=== PATIENT | male | born 1950 | race Caucasian/White ===

== ENCOUNTER 2023-06-28 13:44 | Inpatient (IN) | payer OTHER, SELFPAY ==
[2023-06-27 13:01] VITALS: BP 170/98
[2023-06-27 13:25] LABS: % Basophils 0.5 % (0-2); % Eosinophils 1.9 % (0-6); % Immature Granulocytes 0.7 % (0-0.5); % Lymphocytes 22.6 % (20.5-51.1); % Monocytes 5.1 % (1.7-9.3); % Neutrophils 69.2 % (42.2-75.2); Absolute Eosinophils 0.2 10^3/uL (0-0.7); Absolute Immature Granulocytes 0.1 10^3/uL (0-0.05); Absolute Monocytes 0.5 10^3/uL (0.1-0.6); Absolute Neutrophils 6.1 10^3/uL (1.4-6.5); Hematocrit 40.8 % (39.0-52.0); Hemoglobin 13.6 g/dL (13.0-18.0); Mean Corp Hgb Conc. 33.3 g/dL (33.0-37.0); Mean Corpuscular Hgb 30.4 pg (27.0-31.0); Mean Corpuscular Volume 91.1 fL (80.0-94.0); Nucleated Red Blood Cells % 0 % (-); Platelet Count 336 10^3/uL (130-400); Red Blood Cell Count 4.48 10^6/uL (4.70-6.10); Red Cell Dist. Width 14.6 % (11.5-14.5); White Blood Cell Count 8.8 10^3/uL (4.8-10.8)
[2023-06-27 14:00] LABS: ALT (SGPT) 35 U/L (0-50); AST (SGOT) 31 U/L (17-59); Alkaline Phosphatase 137 U/L (38-126); Blood Urea Nitrogen 17 mg/dl (9-20); Calcium 9.1 mg/dl (8.4-10.2); Carbon Dioxide 22 mmol/L (22-30); Chloride 104 mmol/L (98-107); Glucose 127 mg/dl (70-99); Potassium 4.6 mmol/L (3.5-5.1); Sodium 135 mmol/L (135-145); Total Bilirubin 0.7 mg/dl (0.2-1.3); eGFR > 60.00
--- NOTE | 2023-06-27 15:49 | ED.SKININJ ---
HPI-Injury
General
Chief Complaint: Skin Problem
Source: patient and family
Exam Limitations: none
Time Seen by Provider: 06/27/23 15:34
Nursing documentation reviewed up to this point in time: agreed with
Travel History
Have you had any contact with someone who has COVID-19?: No
Do you have any symptoms of coronavirus? Fever > 100 degrees, chills, cough, shortness of breath, sore throat, loss of taste or smell, muscle aches, or headache?: No
History of Present Illness-Injury
Is this injury a work related problem?: Yes
Is pt an associate of [facility]?: No
Initial Injury comments:
72-year-old male referred to the ER for admission for IV antibiotics
Injured his right lower extremity blowing snow about a week ago puncture wound, went to work of his health and PCP started on Bactrim increased redness and pain with warmth no fever went to [facility] today referred here after he had an x-ray for IV
antibiotics and admission has peripheral vascular disease he is on Plavix and Eliquis and aspirin not known to be diabetic no chest pain or shortness of breath
Past History
Past History
ED Past Medical History: Other (Peripheral vascular disease)
Social History
Tobacco: Non-smoker
Alcohol: None
Drug: None
Personal:
Living: with family
Employment: Employed
Review of Systems
Review of Systems
All Other Systems: Not applicable
Constitutional: Reports fatigue; Denies fever
EENT: Reports no symptoms
Respiratory: Reports no symptoms
Cardiac: Reports no symptoms
ABD/GI: Reports no symptoms
: Reports no symptoms
Musculoskeletal: Reports muscle stiffness and edema
Skin: Reports rash
Neurological: Reports no symptoms
Endocrine: Reports no symptoms
Phy Exam
Physical Exam
Physical Exam:
Physical Exam
General: no apparent distress, not acutely ill
Neck: No jaundice
Heart: s1/s2 regular rate and rhythm, no murmur. equal radial pulses.
Lungs: no acute respiratory distress. clear bilaterally
Abdomen: Nontender
Neuro: alert and oriented. no focal neurological deficits
Skin: no rash
Psychiatric: well kept. interactive and cooperative
Extremities: Right lower extremity edema warmth puncture wound on the right lateral leg
Course
Orders/Labs/Results
Orders:
Orders
06/27/23 13:18
Complete Blood Count/With Diff Urgent
Comprehensive Metabolic Panel Urgent
Blood Culture Urgent
TUNG Source: Blood/Venous
Specimen Description:
06/27/23 15:56
Electrocardiogram (*1) Urgent
Reason for Study: Fatigue / Weakness
EKG- Treatment ONCE
06/27/23 15:57
CeFAZolin 2 GRAM [Ancef] 2 grams in 10 ml IV NOW
06/27/23 16:04
Blood Culture Urgent
TUNG Source: Blood/Venous
Specimen Description:
06/27/23 16:38
Tetanus Immune Globulin [Hyper-TET S/D] 250 units IM ONCE ONE
Tetanus/Diphth/Acelpertussis [Adacel] 0.5 ml IM .ONCE ONE
06/27/23 16:44
Admit/Transfer Patient As Directed
Co-Sign Provider:
Level of Care: Observation services
Assign to:: Medical/Surgical
Physician / Group: Ren
Diagnosis: RLE Cellulitis
06/27/23 16:46
Code Status As Directed
Resuscitation Status: Full Code
Abnormal Lab Results
06/27/23
13:18
RBC 4.48 L 10^6/uL
(4.70-6.10)
RDW 14.6 H %
(11.5-14.5)
Abs Immat Gran (auto) 0.1 H 10^3/uL
(0-0.05)
Immature Gran % 0.7 H %
(0-0.5)
Glucose 127 H mg/dl
(70-99)
Alkaline Phosphatase 137 H U/L
(38-126)
06/27/23 13:18
06/27/23 13:18
Vital Signs
Initial and Last Documented VS:
Initial Vital Signs
Temp Pulse Resp BP Pulse Ox
98.2 F 68 16 170/98 98
06/27/23 13:01 06/27/23 13:01 06/27/23 13:01 06/27/23 13:01 06/27/23 13:01
Last Documented Vital Signs
Temp Pulse Resp BP Pulse Ox
98.2 F 68 16 170/98 98
06/27/23 13:01 06/27/23 13:01 06/27/23 13:01 06/27/23 13:01 06/27/23 13:01
MDM/Problems Addressed
Differential Diagnosis Includes:
Cellulitis, contusion, doubt DVT or fasciitis
MDM/Problems Addressed:
Leg
Chronic conditions affecting care:
Peripheral vascular disease, anticoagulant
Acute Exacerbation and/or Progression of Chronic Illness:
Peripheral vascular disease
*Pulse Oximetry
Patient hypoxic: no
*EKG
Interpreted by ED Provider?: Yes
Interpretation: abnormal
Comparison EKG: no comparison EKG present
Heart Rate: 78
Rate: normal
Rhythm: a-fib
Ischemia: non-specific ST changes
*Critical Care Note
Total Time (30-74mins, 75-104mins- exclusive of procedures): Not Applicable
Update Note
Update Note:
Update patient seen by [employer]. PCP started on Bactrim, then seen by orthopedics had an x-ray referred here for admission
Cultures have been sent will give Keflex,
ED Attending Note
-
Portions of this chart may have been created with voice recognition software.� Occasional wrong word or��sound alike� substitutions may have occurred due to the inherent limitations of voice recognition software.
Discharge Plan
Departure
Patient Disposition: Admit
Date of Disposition: 06/27/23
Time of Disposition: 15:57
Admit to: Med/Surg
Presentation/result/management discussed w/ accepting MD/DO: Hospitalist
Patient with high blood pressure during this ER visit?: No
Condition: Good
Discharge Problem:
Cellulitis
Instructions: Cellulitis (Skin Infection), Adult (DC)
Prescriptions:
No Action
levothyroxine [Synthroid] 137 mcg Tablet
137 mcg PO SUMOWEFRSA@1900
levothyroxine [Synthroid] 137 mcg Tablet
205.5 mcg PO TUTH@1900
atorvastatin 10 mg Tablet
10 mg PO QPM
atenolol 25 mg Tablet
25 mg PO DAILY
clopidogrel [Plavix] 75 mg Tablet
75 mg PO DAILY
aspirin 81 mg Tablet,Delayed Release (Dr/Ec)
81 mg PO DAILY
pantoprazole [Protonix] 40 mg Tablet,Delayed Release (Dr/Ec)
40 mg PO DAILY
allopurinol 300 mg Tablet
300 mg PO DAILY
ezetimibe [Zetia] 10 mg Tablet
10 mg PO DAILY
Eliquis 5 mg Tablet
5 mg PO BID
Losartan
1 tab PO DAILY
ascorbic acid (vitamin C) [Vitamin C] 500 mg Tablet
500 mg PO DAILY
cholecalciferol (vitamin D3) [Vitamin D3] 25 mcg (1,000 unit) Tablet
25 mcg PO DAILY
Interventions
Interventions:
*ED COVID-19 Vaccine History Last Done: 06/27/23 13:01
--- NOTE | 2023-06-27 16:16 | PHANOTE ---
Med Rec Note- patient spouse is going to call there pcp and verify dosing and directions for losartan, did try to id tablets in [employer], most of them id come up but some were vitamin. spouse said some were missing from weekly pack
--- NOTE | 2023-06-27 16:35 | HPS.HSE ---
Addendum entered and electronically signed by Kong Mcclure MD 06/27/23 17:02:
I saw and examined the patient.
The [employer]IC[employer] INSPECT[employer] P[employer] or PA's note was reviewed and I agree with the note.
Comment:
72 male presented with right lower leg cellulitis. He had a small cut by the snowblower few days ago. He had some bleeding. He developed erythema, swelling and redness in the area. Bruising down his right foot and toes because he takes Eliquis.
He saw his a primary care doctor and was given Bactrim. Today he saw [facility] and he was sent for short course of IV antibiotic.
Physical Exam
General: Other (no acute distress, conversant)
HEENT: Moist mucous membranes and PERRLA
Respiratory: Clear; No Wheezes, Rales or Rhonchi
Cardiac: S1/S2 and Regular Rhythm; No Murmur
GI: Soft, Non Distended, Normal Bowel Sounds.
Musculoskeletal: No Clubbing, No Cyanosis and No Edema. Right lower leg mild erythema and healing wound seen. Some tenderness surrounding the wound which is on the lower posterior surface of the leg
Neuro: AO x 3, followed commands.
Psych: Calm; No agitation.
# Cellulitis
Secondary to snowblower wound. Seems to be healing well. No palpable lump. I looked at the pictures taken by his on her cell phone. Wound looks less swollen and less red with decreasing bruising. He was elevating his leg at home and taking
Bactrim. No signs of sepsis. No leukocytosis or fever. Will continue with IV cefazolin for 24 hours and likely discharge home to finish course of oral antibiotic.
Will give tetanus shot.
Tylenol for pain
Continue to elevate the leg.
#Coronary Artery Disease s/p Stent
No chest pain. No palpitations. No shortness of breath
-Continue aspirin and clopidogrel
#Paroxysmal Atrial Fibrillation
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
-Continue Eliquis
Essential Hypertension
-Continue Atenolol and Losartan
Hyperlipidemia
-Continue atorvastatin and ezetimibe
Hypothyroidism
-Continue� levothyroxine
GERD
-Continue Protonix
Gout
-Continue allopurinol
DVT proph: Eliquis
Code Status: Full Code
Total time spent to see the patient, examine the patient on the floor, review data and lab results, discuss treatment plan with patient, nursing staff, ER doctor around 75 minutes
Original Note:
Family Physician
-
Family Physician: Lakeisha Barajas
Chief Complaint
-
Right Leg Injury
History of Present Illness
Pt is a 72yo M w/ a PMH of HTN, HLD, AFib, and CAD who was sent to the ED by [facility] for cellulitis of the right lower leg. Pt states he was blowing snow a week ago and hit himself in the posterior right lower leg with the java tech lead which resulted
in a puncture wound. He did not seek treatment for this at first but states the leg became increasingly swollen, erythematous and hot to the touch over the next several days. On Sunday he was started on Bactrim and he reports improved redness, and
warmth but states the pain and swelling are about the same. He denies fever. He denies PMH of diabetes.
Medical History
Past Medical History
Past Medical History: Reports Other
Additional Past Medical History:
Coronary Artery Disease
Paroxysmal Atrial Fibrillation
Essential Hypertension
Hyperlipidemia
Hypothyroidism
GERD
Gout
Past Surgical History: Reports Other
Additional Past Surgical History:
Cardiac Stents
Hip Replacement
Hernia Repair
Social History
Tobacco: Former Smoker (Quit 50 years ago)
Alcohol: None
Family History
Family History: Not pertinent
Allergies / Home Medications
Allergies reflects when Allergies were last updated in [employer].
Home Medications with original date entered in [employer]
Allergy/Medication List:
Allergies
Allergy/AdvReac Type Severity Reaction Status Date / Time
No Known Allergies Allergy Verified 06/27/23 13:06
Home Medications
Losartan 1 tab PO DAILY 06/27/23
allopurinol 300 mg tablet 300 mg PO DAILY 06/27/23
apixaban 5 mg tablet (Eliquis) 5 mg PO BID 06/27/23
ascorbic acid (vitamin C) 500 mg tablet (Vitamin C) 500 mg PO DAILY 06/27/23
aspirin 81 mg tablet,delayed release 81 mg PO DAILY 06/27/23
atenolol 25 mg tablet 25 mg PO DAILY 06/27/23
atorvastatin 10 mg tablet 10 mg PO QPM 06/27/23
cholecalciferol (vitamin D3) 25 mcg (1,000 unit) tablet (Vitamin D3) 25 mcg PO DAILY 06/27/23
clopidogrel 75 mg tablet (Plavix) 75 mg PO DAILY 06/27/23
ezetimibe 10 mg tablet (Zetia) 10 mg PO DAILY 06/27/23
levothyroxine 137 mcg tablet (Synthroid) 137 mcg PO SUMOWEFRSA@189906/27/23
levothyroxine 137 mcg tablet (Synthroid) 205.5 mcg PO TUTH@1900 06/27/23
pantoprazole 40 mg tablet,delayed release (Protonix) 40 mg PO DAILY 06/27/23
Review of Systems
-
A 12 point ROS was completed and negative except as noted: Yes
Constitutional: Denies Fever or Chills
Respiratory: Denies Cough or Trouble Breathing
Cardiac: Denies Chest Pain or Palpitations
Physical Exam
Vital Signs
Vital Signs
Temp Pulse Resp BP Pulse Ox
98.2 F 68 16 170/98 98
06/27/23 13:01 06/27/23 13:01 06/27/23 13:01 06/27/23 13:01 06/27/23 13:01
Physical Exam
General: Comfortable and Conversant
HEENT: Anicteric and Moist mucous membranes
Respiratory: Clear and Non Labored Respirations
GI: Soft and Non Tender
Musculoskeletal: No Clubbing, No Cyanosis and Edema, Left Lower Extremity
Skin: Warm, Dry and Other (Mild erythema right ankle with slight increased warmth to touch. Small wound posterior right calf without purulent drainage or fluctuance noted. Bruising right toes)
Neuro: Awake, Alert, Oriented and Nonfocal/grossly intact
Psych: Calm
Laboratory Results
-
06/27/23 13:18
06/27/23 13:18
Laboratory Results
Total Bilirubin 0.7 mg/dl (0.2-1.3) 06/27/23 13:18
AST 31 U/L (17-59) 06/27/23 13:18
ALT 35 U/L (0-50) 06/27/23 13:18
Alkaline Phosphatase 137 U/L (38-126) H 06/27/23 13:18
Data Reviewed
-
Lab Data: Labs Reviewed by me
Impression/Plan
-
Right Lower Extremity Cellulitis
-Give tetanus booster
-Continue Ancef
Coronary Artery Disease s/p Stent
-Continue aspirin and clopidogrel
Paroxysmal Atrial Fibrillation
-Continue Eliquis
Essential Hypertension
-Continue Atenolol and Losartan
Hyperlipidemia
-Continue atorvastatin and ezetimibe
Hypothyroidism
-Continue levothyroxine
GERD
-Continue Protonix
Gout
-Continue allopurinol
DVT proph: Eliquis
Code Status: Full Code
[2023-06-27 16:44] VITALS: BMI 41.3
[2023-06-27 16:45] VITALS: BP 116/76
[2023-06-27 17:00] VITALS: BP 113/78
[2023-06-27] MEDS: ADACEL 0.5 ML IM (17:26)
[2023-06-27] MEDS: ANCEF 10 IV (17:27)
[2023-06-27 18:00] VITALS: BP 125/64
[2023-06-27] MEDS: TYLENOL 650 MG PO (18:24)
[2023-06-27 18:44] VITALS: BP 147/82; BMI 40.6
[2023-06-27] MEDS: LIPITOR 10 MG PO (20:12)
[2023-06-27] MEDS: ELIQUIS 5 MG PO (20:13)
[2023-06-27] MEDS: SYNTHROID 137 MCG PO (20:13)
[2023-06-27] MEDS: ULTRAM 50 MG PO (21:28)
[2023-06-27 23:45] VITALS: BP 135/73
[2023-06-28] MEDS: ANCEF 10 IV ×3 (02:31→17:54)
[2023-06-28 07:30] VITALS: BP 131/75
[2023-06-28 08:21] LABS: Hematocrit 41.4 % (39.0-52.0); Hemoglobin 13.6 g/dL (13.0-18.0); Mean Corp Hgb Conc. 32.9 g/dL (33.0-37.0); Mean Corpuscular Hgb 30.8 pg (27.0-31.0); Mean Corpuscular Volume 93.7 fL (80.0-94.0); Mean Platelet Volume 10.4 fL (7.4-10.4); Platelet Count 346 10^3/uL (130-400); Red Blood Cell Count 4.42 10^6/uL (4.70-6.10); Red Cell Dist. Width 14.5 % (11.5-14.5); White Blood Cell Count 7.6 10^3/uL (4.8-10.8)
[2023-06-28] MEDS: ULTRAM 50 MG PO ×2 (08:37→17:58)
[2023-06-28] MEDS: PLAVIX 75 MG PO (08:38)
[2023-06-28] MEDS: VITAMIN D3 (cholecalciferol) 25 MCG PO (08:38)
[2023-06-28] MEDS: ELIQUIS 5 MG PO (08:38)
[2023-06-28] MEDS: ASPIR LOW (ENTERIC COATED) 81 MG PO (08:39)
[2023-06-28] MEDS: TENORMIN 25 MG PO (08:39)
[2023-06-28] MEDS: PROTONIX 40 MG PO (08:39)
[2023-06-28] MEDS: VITAMIN C 500 MG PO (08:39)
[2023-06-28] MEDS: ZYLOPRIM 300 MG PO (08:39)
[2023-06-28 08:44] LABS: Blood Urea Nitrogen 17 mg/dl (9-20); Carbon Dioxide 27 mmol/L (22-30); Chloride 103 mmol/L (98-107); Estimated Creatinine Clearance 79 ml/min; Glucose 93 mg/dl (70-99); Potassium 5.1 mmol/L (3.5-5.1); Sodium 136 mmol/L (135-145); eGFR > 60.00
[2023-06-28] MEDS: ZETIA 10 MG PO (09:49)
[2023-06-28] MEDS: TYLENOL 650 MG PO (09:55)
--- NOTE | 2023-06-28 10:11 | W.PN.HOSP.TC ---
Today's Communication/Plan
-
.
Assessment / Plan
Assessment / Plan
72 male presented with right lower leg cellulitis.� He had a small cut by the snowblower few days ago.� He had some bleeding.� He developed erythema, swelling and redness in the area.� Bruising down his right foot and toes because he takes Eliquis.�
He saw his a primary care doctor and was given Bactrim. Today he saw [facility] orthopedic and he was sent for short course of IV antibiotic.
Physical Exam
General: Other (no acute distress, conversant)
HEENT: Moist mucous membranes and PERRLA
Respiratory: Clear; No Wheezes, Rales or Rhonchi
Cardiac: S1/S2 and Regular Rhythm; No Murmur
GI: Soft, Non Distended, Normal Bowel Sounds.
Musculoskeletal: No Clubbing, No Cyanosis and No Edema.� Right lower leg mild erythema and healing wound seen.� Some tenderness surrounding the wound which is on the lower posterior surface of the leg, some palpable induration felt
Neuro: AO x 3, followed commands.
Psych: Calm; No agitation.
# Cellulitis
Secondary to snowblower wound.� Seems to be healing well. some mild lump today.
Will do US to rule out collection
c/w IV Ancef
No signs of sepsis.� No leukocytosis or fever.�
s/p tetanus shot.
Tylenol for pain
Continue to elevate the leg.
#Coronary Artery Disease s/p Stent
No chest pain.� No palpitations.� No shortness of breath
-Continue aspirin and clopidogrel
#Paroxysmal Atrial Fibrillation
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
-Continue Eliquis
Essential Hypertension
-Continue Atenolol and Losartan
Hyperlipidemia
-Continue atorvastatin and ezetimibe
Hypothyroidism
-Continue� levothyroxine
GERD
-Continue Protonix
Gout
-Continue allopurinol
DVT proph: Eliquis
Code Status: Full Code
Total time spent to see the patient, examine the patient on the floor, review data and lab results, discuss treatment plan with patient, nursing staff, around 55 minutes
Anticipated Discharge: Within 24 hours
Subjective/Interval History
-
Date of Service: June 28, 2023
Pain at site of the wound
no fevers
Objective Data
-
Labs:
Laboratory Results
06/28/23
06:38
WBC 7.6
Hgb 13.6
Hct 41.4
Plt Count 346
Sodium 136
Potassium 5.1
Chloride 103
Carbon Dioxide 27
BUN 17
Creatinine 1.2
Glucose 93
Calcium 9.0
Vital Signs:
Vital Signs
Temp Pulse Resp BP Pulse Ox
98.0 F 54 18 131/75 96
06/28/23 07:30 06/28/23 08:39 06/28/23 07:30 06/28/23 08:39 06/28/23 07:30
I&O
06/27/23 06/28/23 06/29/23
06:59 06:59 06:59
Intake Total 480 / 480
Balance 480 / 480
--- NOTE | 2023-06-28 13:20 | PTCARENOTE ---
Patient with right lower extremity cellulitis. Collection appears to be gathering in area where there was contact with equipment. Patient went for US of leg today which showed fluid collection. Plavix on hold. Awaiting surgical consult.
--- NOTE | 2023-06-28 14:07 | CON.GS ---
Consultation
-
Requesting Provider: Ren
Performing Provider: Murphy
Reason for Consultation: Suspected right lower extremity abscess
Medical History
-
Chief Complaint: Right lower extremity swelling, redness at the
History of Present Illness:
Patient is a 72-year-old male who was in his usual baseline state of health until last Sunday when his snowblower rolled into his right lower extremity resulting in a puncture wound. He was expecting to see a lot of bleeding as he is on Eliquis
and Plavix but notes that there was just a skin puncture and not even too much bruising. Few days later the extremity began to swell and developed more pain as well as redness in the skin. Saw urgent care Sunday and was started on Bactrim. His
symptoms have continued to progress despite antibiotic use prompting emergency department evaluation and admission overnight.
Past Medical History
Past Medical History: Other (CAD with history of stents, P A-fib, hypertension, hyperlipidemia, hypothyroidism, GERD, gout)
Past Surgical History: Other (Cardiac stents, hip replacement, history of hernia repair)
Social History
Tobacco: Former Smoker
Personal:
Living: With Family
Employment: Employed
Allergies / Home Medications
Allergy/AdvReac Type Severity Reaction Status Date / Time
No Known Allergies Allergy Verified 06/27/23 13:06
Medication Instructions Recorded Confirmed Type
Losartan 1 tab PO DAILY 06/27/23 06/27/23 History
allopurinol 300 mg tablet 300 mg PO DAILY 06/27/23 06/27/23 History
apixaban 5 mg tablet (Eliquis) 5 mg PO BID 06/27/23 06/27/23 History
ascorbic acid (vitamin C) 500 mg 500 mg PO DAILY 06/27/23 06/27/23 History
tablet (Vitamin C)
aspirin 81 mg tablet,delayed 81 mg PO DAILY 06/27/23 06/27/23 History
release
atenolol 25 mg tablet 25 mg PO DAILY 06/27/23 06/27/23 History
atorvastatin 10 mg tablet 10 mg PO QPM 06/27/23 06/27/23 History
cholecalciferol (vitamin D3) 25 25 mcg PO DAILY 06/27/23 06/27/23 History
mcg (1,000 unit) tablet (Vitamin
D3)
clopidogrel 75 mg tablet (Plavix) 75 mg PO DAILY 06/27/23 06/27/23 History
ezetimibe 10 mg tablet (Zetia) 10 mg PO DAILY 06/27/23 06/27/23 History
levothyroxine 137 mcg tablet 137 mcg PO SUMOWEFRSA@189906/27/23 06/27/23 History
(Synthroid)
levothyroxine 137 mcg tablet 205.5 mcg PO TUTH@189906/27/23 06/27/23 History
(Synthroid)
pantoprazole 40 mg tablet,delayed 40 mg PO DAILY 06/27/23 06/27/23 History
release (Protonix)
Review of Systems
-
A 10 point review of systems was completed, and was negative except as per HPI.
Physical Exam
Vital Signs
Temp Pulse Resp BP Pulse Ox
98.0 F 54 18 131/75 96
06/28/23 07:30 06/28/23 08:39 06/28/23 07:30 06/28/23 08:39 06/28/23 08:30
06/27/23 06/28/23 06/29/23
06:59 06:59 06:59
Actual Weight 132.024 kg
Body Mass Index (BMI) 40.6
Lab Results
06/28/23 06:38
06/28/23 06:38
WBC 7.6 10^3/uL (4.8-10.8) 06/28/23 06:38
Hgb 13.6 g/dL (13.0-18.0) 06/28/23 06:38
Hct 41.4 % (39.0-52.0) 06/28/23 06:38
Plt Count 346 10^3/uL (130-400) 06/28/23 06:38
Abs Immat Gran (auto) 0.1 10^3/uL (0-0.05) H 06/27/23 13:18
Neutrophils % 69.2 % (42.2-75.2) 06/27/23 13:18
Physical Exam
General: Well Developed, Well Nourished, No Apparent Distress and Comfortable
HEENT: Normocephalic, Anicteric and Moist Mucous Membranes
Respiratory: Non Labored Respirations
Musculoskeletal: Other (Right lower extremity with edema, circumferential erythema and puncture skin wound just proximal to the right lateral malleolus. Immediately in the vicinity is fluctuance and surrounding induration. No purulence expressed.
Mild tenderness.)
Neuro: AO x 3
Psych: Calm
Data Reviewed
-
Ultrasound: Image Personally Visualized and interpreted, Report Reviewed by me, Discussed with Physician, Discussed with Patient and Other (Right lower extremity focused ultrasound 06/28/2023: Complex fluid collection 5.8 x 2.3 x 5.1 cm which is
approximately 6 to 7 cm deep from the skin level. Findings suggestive of hematoma versus abscess. This does not appear to extend into the muscular compartment.)
Labs: Labs Reviewed by me and Discussed with Patient
Assessment / Plan
-
Assessment: 72-year-old male with traumatic injury to right lower extremity with resultant skin puncture and now secondary cellulitis with suspected abscess versus infected hematoma. Ultrasound confirmed fluid collection within the deep
subcutaneous tissues but superficial to the muscular compartment measuring 5.8 x 2.3 x 5.1 cm.
Given examination and ultrasound imaging discussed with patient and his at bedside high suspicion for infected hematoma versus developed abscess after initial cellulitis. Due to size, location and patient being on dual antiplatelet therapy as
well as therapeutic anticoagulation recommended surgical drainage in the operating room. As he is not exhibiting any signs of sepsis would allow 24-hour washout of Eliquis, last dose this a.m. Given his cardiac history okay to continue on aspirin
and Plavix.
Patient in agreement with outlined plan.
He has been added onto the OR schedule for 06/29/2023, Pedro will be held
N.p.o. after midnight
Patient currently on Ancef, defer antibiotics to hospitalist service currently managing patient.
Will obtain cultures intraoperatively to help further guide antibiotic therapy.
--- NOTE | 2023-06-28 14:15 | PTCARENOTE ---
Patient to be NPO after midnight for surgical evacuation of right lower extremity cellulitis. Patient and understand instruction and reason for surgery. is requesting to stay overnight. Working with charge nurse and admissions to check on
possibilities.
[2023-06-28 15:19] VITALS: BP 141/76
--- NOTE | 2023-06-28 15:35 | CM ---
Alert awake oriented patient who lives with his Glenys who lives in a 2 story home with 3 step to enter and bed and bathroom on first floor. He is independent in driving and in all activities of daily living.He had work injury Called Derek
heidi spoke with Lakeisha Isaac [phone] .Workers [employer] company is [employer] claim number [id number] # [phone]. tenant relations coordinator is Lauren Max [phone]. All information given to Vidhya in admission to enter in summary.
No adaptive devices.
[facility]
PCP DR Barajas
PLAN Home with possible VN
[2023-06-28] MEDS: LIPITOR 10 MG PO (17:53)
[2023-06-28] MEDS: SYNTHROID 205.5 MCG PO (20:07)
--- NOTE | 2023-06-28 20:55 | PTCARENOTE ---
Report given to chris Tenorio transferred to 2120 with all belongings.
[2023-06-28 23:31] VITALS: BP 142/75
[2023-06-29] VITALS (8 sets, daily range): BP systolic 103–154; BP diastolic 54–77
[2023-06-29] MEDS: ANCEF 10 IV ×3 (02:09→17:17)
[2023-06-29] MEDS: ULTRAM 50 MG PO ×3 (02:17→19:55)
--- NOTE | 2023-06-29 07:17 | W.PN.HOSP.TC ---
Today's Communication/Plan
-
.
Assessment / Plan
Assessment / Plan
72 male presented with right lower leg cellulitis.� He had a small cut by the snowblower few days ago.� He had some bleeding.� He developed erythema, swelling and redness in the area.� Bruising down his right foot and toes because he takes Eliquis.�
He saw his a primary care doctor and was given Bactrim. Today he saw [facility] orthopedic and he was sent for short course of IV antibiotic.
Physical Exam
General: Other (no acute distress, conversant)
HEENT: Moist mucous membranes and PERRLA
Respiratory: Clear; No Wheezes, Rales or Rhonchi
Cardiac: S1/S2 and Regular Rhythm; No Murmur
GI: Soft, Non Distended, Normal Bowel Sounds.
Musculoskeletal: No Clubbing, No Cyanosis and No Edema.� Right lower leg mild erythema and healing wound seen.� Some tenderness surrounding the wound which is on the lower posterior surface of the leg, some palpable induration felt
Neuro: AO x 3, followed commands.
Psych: Calm; No agitation.
# Cellulitis/ infected hematoma
Secondary to snowblower wound.�
reviewed US, c/w fluid collection: abscess Vs infected hematoma
c/w IV Ancef
No signs of sepsis.� No leukocytosis or fever.�
s/p tetanus shot.
Tylenol for pain
Blood cultures no growth
Continue to elevate the leg.
Plan for I&D in OR today
Appreciate surgery help
#Coronary Artery Disease s/p Stent
No chest pain.� No palpitations.� No shortness of breath
-Continue clopidogrel
Hold Aspirin. Doubt he needs dual anti-platelets therapy with Eliquis, will reach out to his felled seam operator
#Paroxysmal Atrial Fibrillation
Primary felled seam operator Dr. Pereira� in [place]
-Holding Eliquis pending procedure
# Obesity
BMI 40
Essential Hypertension
-Continue Atenolol and Losartan
Hyperlipidemia
-Continue atorvastatin and ezetimibe
Hypothyroidism
-Continue� levothyroxine
GERD
-Continue Protonix
Gout
-Continue allopurinol
DVT proph: resume Eliquis upon completion of procedure
Code Status: Full Code
Total time spent to see the patient, examine the patient on the floor, review data and lab results, discuss treatment plan with patient, , nursing staff, around 57 minutes
Anticipated Discharge: 24 - 48 hours
Subjective/Interval History
-
Date of Service: June 29, 2023
No chest pain
No sob
No fevers
less discomfort in right lower leg
Objective Data
-
Vital Signs:
Vital Signs
Temp Pulse Resp BP Pulse Ox
97.7 F 65 20 142/75 95
06/28/23 23:31 06/28/23 23:31 06/28/23 23:31 06/28/23 23:31 06/28/23 23:31
I&O
06/28/23 06/29/23 06/30/23
06:59 06:59 06:59
Intake Total 480 / 480 1180 / 1180
Balance 480 / 480 1180 / 1180
--- NOTE | 2023-06-29 07:27 | W.PN.GS2 ---
Today's Communication / Plan
-
-- I&D of RLE infected hematoma
-- NPO, IVF
-- Antibiotics: Cefazolin, will obtain wound cultures during operation
Assessment / Plan
-
Patient is a 72 yo M p/w RLE infected hematoma following trauma
US with 5.8 cm complex fluid collection, hematoma versus abscess
AVSS, WBC normal, significant clinical improvement on antibiotics
Options for management at this time including continued medical management with antibiotics versus proceeding with surgical drainage and exploration were considered and discussed. The pros and cons of both approaches was discussed. Given the size
of the collection on ultrasound as well as the degree of erythema and likelihood that this will coalesce into an abscess that will not be completely treated by antibiotics, recommend upfront surgical exploration and evacuation of any purulence.
Patient agrees with this management strategy. Plan for I&D of RLE. The procedure itself, as well as the risks, benefits, and alternatives was discussed. Specifically, we discussed the risks of bleeding (increased risk on ASA, Plavix, and Eliquis
LD 06/28), infection including need for further procedures, injury to surrounding structures, delayed wound care and ultimate healing in the weeks to come. All questions answered. Consent signed.
-- I&D of RLE infected hematoma
-- NPO, IVF
-- Antibiotics: Cefazolin, will obtain wound cultures during operation
Subjective Data
-
Date of Service: June 29, 2023
No major complaints. Pain, swelling, and redness have all improved. No drainage. No fevers.
Objective Data
-
Intake and Output
06/28/23 06/29/23 06/30/23
06:59 06:59 06:59
Intake Total 480 / 480 1180 / 1180
Balance 480 / 480 1180 / 1180
Intake:
Oral fluids 480 / 480 1180 / 1180
Other:
Number of approximated MODERATE 3 3
amounts of urine
Vital Signs
Temp Pulse Resp BP Pulse Ox
97.7 F 65 20 142/75 95
06/28/23 23:31 06/28/23 23:31 06/28/23 23:31 06/28/23 23:31 06/28/23 23:31
Lab Results
06/28/23 06:38
06/28/23 06:38
Calcium 9.0 mg/dl (8.4-10.2) 06/28/23 06:38
Total Bilirubin 0.7 mg/dl (0.2-1.3) 06/27/23 13:18
AST 31 U/L (17-59) 06/27/23 13:18
ALT 35 U/L (0-50) 06/27/23 13:18
Alkaline Phosphatase 137 U/L (38-126) H 06/27/23 13:18
Total Protein 7.0 g/dl (6.3-8.2) 06/27/23 13:18
Albumin 4.0 g/dl (3.5-5.0) 06/27/23 13:18
Physical Exam
-
Gen: NAD
RLE: lateral malleolus with erythema, swelling and induration, more centralized swelling overlying small puncture site approximately 5 cm, no active bleeding or drainage, minimal tenderness with palpation, no significant surrounding ecchymosis
--- NOTE | 2023-06-29 07:34 | W.SUR.PREOP ---
Pre-Operative Surgical Note
-
I have examined this patient prior to the performance of the scheduled procedure.
The patient's condition is unchanged from the time of the current History and
Physical and the patient is able to undergo the scheduled procedure.
[2023-06-29] MEDS: TYLENOL 1000 MG PO (07:51)
[2023-06-29] MEDS: TENORMIN 25 MG PO (07:52)
[2023-06-29] MEDS: PLAVIX 75 MG PO (07:52)
[2023-06-29] MEDS: ZETIA 10 MG PO (07:52)
[2023-06-29] MEDS: VITAMIN D3 (cholecalciferol) 25 MCG PO (07:52)
[2023-06-29] MEDS: PROTONIX 40 MG PO (07:52)
[2023-06-29] MEDS: ZYLOPRIM 300 MG PO (09:27)
--- NOTE | 2023-06-29 12:06 | W.IMMPOSTOP ---
Addendum entered and electronically signed by Calos Nobles MD 06/29/23 12:14:
[facility]# [id number]
Original Note:
Surgical Immed Post Op Note
-
Primary Surgeon: Mallorie
Assisting Surgeon: None
Pre-op Diagnosis: Infected hematoma
Post-op Diagnosis: Infected hematoma
Procedure Performed: Incision and drainage of infected hematoma
Anesthesia Type: MAC/local
Specimen / Cultures:
1. Wound culture
Estimated Blood Loss: 3 cc
Complications: None
Operative Findings:
1. Hematoma, small volume clot evacuation
2. No purulence, culture obtained
[2023-06-29] MEDS: DILAUDID 0.5 MG IV ×2 (12:32→12:50)
--- NOTE | 2023-06-29 13:30 | PTCARENOTE ---
pt back from PACU at 13:10. Pt awake, alert and drowsy noted. no s/s of distress noted at this time. able to make needs known. plan of care ongoing. call mack within reach.
--- NOTE | 2023-06-29 14:27 | CM ---
I/D infected hematoma and evacuation of clot on RLE today. On IV/AB. Discharge Plan of Care: TBD. Possible VN for wound care.
[2023-06-29] MEDS: LIPITOR 10 MG PO (17:18)
[2023-06-29] MEDS: SYNTHROID 137 MCG PO (18:13)
[2023-06-30] MEDS: ANCEF 10 IV ×3 (02:01→18:11)
[2023-06-30 07:00] VITALS: BP 139/69
[2023-06-30] MEDS: ZYLOPRIM 300 MG PO (08:09)
[2023-06-30] MEDS: ZETIA 10 MG PO (08:09)
[2023-06-30] MEDS: LOW STRENGTH ASPIRIN 81 MG PO (08:09)
[2023-06-30] MEDS: VITAMIN D3 (cholecalciferol) 25 MCG PO (08:09)
[2023-06-30] MEDS: TENORMIN 25 MG PO (08:09)
[2023-06-30] MEDS: PROTONIX 40 MG PO (08:11)
--- NOTE | 2023-06-30 08:49 | W.PN.HOSP.TC ---
Today's Communication/Plan
-
.
Assessment / Plan
Assessment / Plan
72 male presented with right lower leg cellulitis.� He had a small cut by the snowblower few days ago.� He had some bleeding.� He developed erythema, swelling and redness in the area.� Bruising down his right foot and toes because he takes Eliquis.�
He saw his a primary care doctor and was given Bactrim. Today he saw [facility] orthopedic and he was sent for short course of IV antibiotic.
Physical Exam
General: Other (no acute distress, conversant)
HEENT: Moist mucous membranes and PERRLA
Respiratory: Clear; No Wheezes, Rales or Rhonchi
Cardiac: S1/S2 and Regular Rhythm; No Murmur
GI: Soft, Non Distended, Normal Bowel Sounds.
Musculoskeletal: No Clubbing, No Cyanosis and No Edema.� Right lower leg mild erythema and healing wound seen.� Some tenderness surrounding the wound which is on the lower posterior surface of the leg, some palpable induration felt
Neuro: AO x 3, followed commands.
Psych: Calm; No agitation.
# Cellulitis/ infected hematoma s/p I&D By Dr Nobles on 06/29. No complications reported. No bleding
Secondary to snowblower wound.�
Dressing look clean, no bleeding.
c/w IV Ancef
No signs of sepsis.� No leukocytosis or fever.�
s/p tetanus shot.
Tylenol for pain
Blood cultures no growth
Continue to elevate the leg.
Wait OR culture.
Appreciate surgery help
#Coronary Artery Disease s/p Stent
No chest pain.� No palpitations.� No shortness of breath
#Paroxysmal Atrial Fibrillation
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
-Resumed Eliquis 06/30.
Patient was on aspirin, Plavix and Eliquis. d/w his material distributor. P is supposed to be on aspirin and Eliquis only. Updated the pt and his .
# Obesity
BMI 40
Essential Hypertension
-Continue Atenolol and Losartan
Hyperlipidemia
-Continue atorvastatin and ezetimibe
Hypothyroidism
-Continue� levothyroxine
GERD
-Continue Protonix
Gout
-Continue allopurinol
DVT proph: resume Eliquis upon completion of procedure
Code Status: Full Code
Total time spent to see the patient, examine the patient on the floor, review data and lab results, discuss treatment plan with patient, , nursing staff, around 55 minutes
Anticipated Discharge: 24 - 48 hours
Subjective/Interval History
-
Date of Service: June 30, 2023
Doing well over night
No chest pain
No sob
No fevers
Objective Data
-
Labs:
Laboratory Results
06/30/23
06:00
WBC Pending
Hgb Pending
Hct Pending
Plt Count Pending
Sodium Pending
Potassium Pending
Chloride Pending
Carbon Dioxide Pending
BUN Pending
Creatinine Pending
Glucose Pending
Calcium Pending
Vital Signs:
Vital Signs
Temp Pulse Resp BP Pulse Ox
98.2 F 58 18 139/69 94
06/30/23 07:00 06/30/23 08:09 06/30/23 07:00 06/30/23 08:09 06/30/23 07:00
I&O
06/29/23 06/30/23 07/01/23
06:59 06:59 06:59
Intake Total 1180 / 1180 780 / 780
Balance 1180 / 1180 780 / 780
[2023-06-30 09:51] LABS: Blood Urea Nitrogen 18 mg/dl (9-20); Calcium 9.2 mg/dl (8.4-10.2); Carbon Dioxide 27 mmol/L (22-30); Chloride 99 mmol/L (98-107); Estimated Creatinine Clearance 106 ml/min; Glucose 148 mg/dl (70-99); Potassium 4.9 mmol/L (3.5-5.1); Sodium 135 mmol/L (135-145); eGFR > 60.00
[2023-06-30 09:52] LABS: Hematocrit 39.6 % (39.0-52.0); Hemoglobin 13.1 g/dL (13.0-18.0); Mean Corp Hgb Conc. 33.1 g/dL (33.0-37.0); Mean Corpuscular Hgb 30.5 pg (27.0-31.0); Mean Corpuscular Volume 92.3 fL (80.0-94.0); Mean Platelet Volume 10.4 fL (7.4-10.4); Platelet Count 348 10^3/uL (130-400); Red Blood Cell Count 4.29 10^6/uL (4.70-6.10); Red Cell Dist. Width 14.2 % (11.5-14.5); White Blood Cell Count 12.8 10^3/uL (4.8-10.8)
[2023-06-30] MEDS: ULTRAM 50 MG PO ×2 (10:30→17:04)
[2023-06-30 15:00] VITALS: BP 143/80
[2023-06-30] MEDS: LIPITOR 10 MG PO (18:12)
[2023-06-30] MEDS: SYNTHROID 137 MCG PO (18:12)
[2023-06-30] MEDS: ELIQUIS 5 MG PO (20:43)
--- NOTE | 2023-06-30 22:00 | PTCARENOTE ---
This RN saw wound care orders. Offered wound care. Patient refused due to wanting to wait for 'editorial specialist'. Pt is under impression that wound care is to not be done until the specialist comes. This RN explained situation but patient still
refused and would like to re-assess situation tomorrow. Pt is not complaining of any pain, resting comfortably in bed with call mack within reach.
[2023-06-30 23:11] VITALS: BP 121/63
[2023-07-01] MEDS: ANCEF 10 IV ×3 (01:50→18:07)
[2023-07-01 07:00] VITALS: BP 151/82
[2023-07-01] MEDS: TENORMIN 25 MG PO (08:50)
[2023-07-01] MEDS: PROTONIX 40 MG PO (08:51)
[2023-07-01] MEDS: ZYLOPRIM 300 MG PO (08:51)
[2023-07-01] MEDS: LOW STRENGTH ASPIRIN 81 MG PO (08:51)
[2023-07-01] MEDS: VITAMIN D3 (cholecalciferol) 25 MCG PO (08:51)
[2023-07-01] MEDS: ELIQUIS 5 MG PO ×2 (08:51→20:13)
[2023-07-01] MEDS: ZETIA 10 MG PO (08:51)
[2023-07-01] MEDS: DULCOLAX 10 MG PO ×2 (09:05→20:13)
[2023-07-01] MEDS: ULTRAM 50 MG PO ×2 (09:05→20:14)
--- NOTE | 2023-07-01 09:12 | W.PN.HOSP.TC ---
Today's Communication/Plan
-
Wound care daily
Ambulate
Assessment / Plan
Assessment / Plan
72 male presented with right lower leg cellulitis.� He had a small cut by the snowblower few days ago.� He had some bleeding.� He developed erythema, swelling and redness in the area.� Bruising down his right foot and toes.� He saw his primary care
doctor and was given Bactrim. He saw [facility] orthopedic and he was sent for short course of IV antibiotic.
Physical Exam
General: Other (no acute distress, conversant)
HEENT: Moist mucous membranes and PERRLA
Respiratory: Clear; No Wheezes, Rales or Rhonchi
Cardiac: S1/S2 and Regular Rhythm; No Murmur
GI: Soft, Non Distended, Normal Bowel Sounds.
Musculoskeletal: No Clubbing, No Cyanosis and No Edema.� Right lower leg clean dressing.
Neuro: AO x 3, followed commands.
Psych: Calm; No agitation.
# Cellulitis/ infected hematoma s/p I&D By Dr Nobles on 06/29. No complications reported. No bleding
Secondary to snowblower wound.�
Dressing look clean, no bleeding.
c/w IV Ancef
No signs of sepsis.� No leukocytosis or fever.�
s/p tetanus shot.
Tylenol for pain
Blood cultures no growth as patient was already on Bactrim at home. If remains negative, can dc on Keflex.
Continue to elevate the leg.
d/w nurse to do wound care daily as surgery ordered.
Appreciate surgery help
#Coronary Artery Disease s/p Stent
No chest pain.� No palpitations.� No shortness of breath
#Paroxysmal Atrial Fibrillation
Primary patient financial advocate Dr. Pereira� in [place]
-Resumed Eliquis 06/30.
Patient was on aspirin, Plavix and Eliquis. d/w his patient financial advocate. P is supposed to be on aspirin and Eliquis only. Updated the pt and his .
# Constipation, added PRN Dulcolax.
# Obesity
BMI 40
Essential Hypertension
-Continue Atenolol and Losartan
Hyperlipidemia
-Continue atorvastatin and ezetimibe
Hypothyroidism
-Continue� levothyroxine
GERD
-Continue Protonix
Gout
-Continue allopurinol
DVT proph: resume Eliquis upon completion of procedure
Code Status: Full Code
Total time spent to see the patient, examine the patient on the floor, review data and lab results, discuss treatment plan with patient, , nursing staff, around 55 minutes
Anticipated Discharge: 24 - 48 hours
Subjective/Interval History
-
Date of Service: July 01, 2023
No chest pain
No sob
No fevers
Objective Data
-
Vital Signs:
Vital Signs
Temp Pulse Resp BP Pulse Ox
98.4 F 58 18 151/82 96
07/01/23 07:00 07/01/23 08:50 07/01/23 07:00 07/01/23 08:50 07/01/23 07:00
I&O
06/30/23 07/01/23 07/02/23
06:59 06:59 06:59
Intake Total 780 / 780 1680 / 1680
Balance 780 / 780 1680 / 1680
[2023-07-01] MEDS: MIRALAX 17 GRAMS PO (13:52)
[2023-07-01] MEDS: TYLENOL 1000 MG PO (13:52)
[2023-07-01 15:00] VITALS: BP 122/71
[2023-07-01] MEDS: LIPITOR 10 MG PO (18:07)
[2023-07-01] MEDS: SYNTHROID 137 MCG PO (18:26)
[2023-07-01 23:16] VITALS: BP 131/82
[2023-07-02] MEDS: ANCEF 10 IV ×3 (02:02→17:58)
[2023-07-02 06:02] LABS: Hematocrit 38.7 % (39.0-52.0); Hemoglobin 12.8 g/dL (13.0-18.0); Mean Corp Hgb Conc. 33.1 g/dL (33.0-37.0); Mean Corpuscular Hgb 30.8 pg (27.0-31.0); Mean Corpuscular Volume 93.3 fL (80.0-94.0); Mean Platelet Volume 10.2 fL (7.4-10.4); Platelet Count 296 10^3/uL (130-400); Red Blood Cell Count 4.15 10^6/uL (4.70-6.10); Red Cell Dist. Width 14.4 % (11.5-14.5); White Blood Cell Count 10.4 10^3/uL (4.8-10.8)
[2023-07-02 06:30] LABS: ALT (SGPT) 19 U/L (0-50); AST (SGOT) 32 U/L (17-59); Albumin 3.3 g/dl (3.5-5.0); Alkaline Phosphatase 126 U/L (38-126); Blood Urea Nitrogen 21 mg/dl (9-20); Calcium 8.8 mg/dl (8.4-10.2); Carbon Dioxide 26 mmol/L (22-30); Chloride 103 mmol/L (98-107); Estimated Creatinine Clearance 106 ml/min; Glucose 97 mg/dl (70-99); Potassium 4.7 mmol/L (3.5-5.1); Sodium 134 mmol/L (135-145); Total Bilirubin 0.5 mg/dl (0.2-1.3); Total Protein 6.3 g/dl (6.3-8.2); eGFR > 60.00
[2023-07-02 07:15] VITALS: BP 152/70
[2023-07-02] MEDS: VITAMIN D3 (cholecalciferol) 25 MCG PO (08:03)
[2023-07-02] MEDS: TENORMIN 25 MG PO (08:03)
[2023-07-02] MEDS: ZYLOPRIM 300 MG PO (08:04)
[2023-07-02] MEDS: ELIQUIS 5 MG PO ×2 (08:04→21:22)
[2023-07-02] MEDS: PROTONIX 40 MG PO (08:04)
[2023-07-02] MEDS: LOW STRENGTH ASPIRIN 81 MG PO (08:04)
[2023-07-02] MEDS: ZETIA 10 MG PO (08:04)
[2023-07-02] MEDS: MIRALAX 17 GRAMS PO (08:04)
[2023-07-02 08:51] VITALS: BP 145/68
--- NOTE | 2023-07-02 09:31 | W.PN.GS2 ---
Today's Communication / Plan
-
Local wound care
Assessment / Plan
-
Patient is a 72 yo M p/w RLE infected hematoma and cellulitis following trauma
US with 5.8 cm complex fluid collection, hematoma versus abscess now POD #3 I&D
AVSS, WBC normal. Cx with NGTD
Blanching erythema still noted surrounding wound, but improved from prior markings. Evacuated small hematoma at bedside. No purulence noted.
--Continue antibiotics
--Continue local wound care
--Avoid prolonged standing. Elevate extremity. Advised to remain out of work x2 weeks as he is on his feet all day
--Discussed with hospitalist team
Subjective Data
-
Date of Service: July 02, 2023
Patient seen and examined at bedside. OOB to chair. Overall doing well. Notes swelling to the foot when ambulating. Denies fevers/chills.
Objective Data
-
Intake and Output
07/01/23 07/02/23 07/03/23
06:59 06:59 06:59
Intake Total 1680 / 1680 0 / 1860
Balance 1680 / 1680 0 / 1860
Intake:
Oral fluids 1680 / 1680 1860 / 1860
Other:
Number of approximated MODERATE 3 3
amounts of urine
Number of unmeasured liquid
stools
Rectum 1 1
Vital Signs
Temp Pulse Resp BP Pulse Ox
98.3 F 52 18 152/70 97
07/02/23 07:15 07/02/23 08:03 07/02/23 07:15 07/02/23 08:03 07/02/23 07:15
Lab Results
07/02/23 05:38
07/02/23 05:38
Calcium 8.8 mg/dl (8.4-10.2) 07/02/23 05:38
Total Bilirubin 0.5 mg/dl (0.2-1.3) 07/02/23 05:38
AST 32 U/L (17-59) 07/02/23 05:38
ALT 19 U/L (0-50) 07/02/23 05:38
Alkaline Phosphatase 126 U/L (38-126) 07/02/23 05:38
Total Protein 6.3 g/dl (6.3-8.2) 07/02/23 05:38
Albumin 3.3 g/dl (3.5-5.0) L 07/02/23 05:38
Physical Exam
-
Gen: NAD
RLE: lateral malleolus with blanching erythema, improved from prior markings. mild localized swelling and dependent edema of the foot with small hematoma noted within the I&D incision (cleaned/evacuated), minimal tenderness with palpation, no
significant surrounding ecchymosis.
--- NOTE | 2023-07-02 10:00 | WOUNDNOTE ---
RLE/ankle (lateral) (photo taken by Dulce Noble NP)
--- NOTE | 2023-07-02 10:00 | WOUNDNOTE ---
RLE/ankle (lateral) (photo taken by Dulce Noble NP)
--- NOTE | 2023-07-02 10:00 | WOUNDNOTE ---
[facility] RN Note: Patient seen by SPOOL TENDER Lux Noble who changed RLE dressing this am. Downloaded RLE wound photos as requested by surgical SPOOL TENDER Dulce. Patient's RLE managed by general surgery service who had placed wound care order/instructions for nursing;
s/p I+D RLE infected hematoma 06/29/23.
[2023-07-02] MEDS: TYLENOL 1000 MG PO (10:50)
--- NOTE | 2023-07-02 12:31 | W.PN.HOSP.TC ---
Today's Communication/Plan
-
IV Abx today, possible DC tomorrow
Assessment / Plan
Assessment / Plan
Assessment:
Cellulitis/infected hematoma (traumatic from snowblower wound)
- s/p I&D 06/29; on 07/02, small incisional hematoma evacuated
- continue wound care per surgical service
- continue IV Ancef - at discharge transition to Keflex. Cultures no growth.
- He is s/p tetanus shot
- continue pain control
CAD s/p stent
Parox A. Fib
- continue Eliquis/ASA. Plavix was stopped per his [facility] service
Constipation
- prn bowel meds
Super Morbid Obesity
- BMI 40
Essential Hypertension
- continue Atenolol and Losartan
Hyperlipidemia
- continue atorvastatin and ezetimibe
Hypothyroidism
- continue�levothyroxine
GERD
- continue Protonix
Gout
- continue allopurinol
DVT ppx: Eliquis
Code: Full
Anticipated Discharge: Within 24 hours
Subjective/Interval History
-
Date of Service: July 02, 2023
Seen in chair, doing well
no fever/chills
d/w medical surgical tech And small hematoma evacuated at bedside
Objective Data
-
Labs:
Laboratory Results
07/02/23
05:38
WBC 10.4
Hgb 12.8 L
Hct 38.7 L
Plt Count 296
Sodium 134 L
Potassium 4.7
Chloride 103
Carbon Dioxide 26
BUN 21 H
Creatinine 0.9
Glucose 97
Calcium 8.8
Total Bilirubin 0.5
AST 32
ALT 19
Alkaline Phosphatase 126
Vital Signs:
Vital Signs
Temp Pulse Resp BP Pulse Ox
98.3 F 52 18 152/70 97
07/02/23 07:15 07/02/23 08:03 07/02/23 07:15 07/02/23 08:03 07/02/23 07:15
I&O
07/01/23 07/02/23 07/03/23
06:59 06:59 06:59
Intake Total 1679 / 1679
Balance 168 / 1679
Physical Exam
-
General: No Apparent Distress
HEENT: Normocephalic and Atraumatic
Respiratory: Negative Wheezes or Rales
Cardiac: Regular Rhythm and S1/S2
GI: Soft and Nontender
Genito-urinary: No Costovertebral Tender
Musculoskeletal: Other (improving erythema near Lateral malleolus)
Neuro: AO x 3
Hematologic / Lymphatic: No Lymphadenopathy
Psych: Calm
Data Reviewed
-
Labs: Labs Reviewed by me
[2023-07-02 15:34] VITALS: BP 130/71
--- NOTE | 2023-07-02 17:37 | CM ---
Patient will need HH VN services. Left messages at Comp [employer] to determine if they need to choose HH agency and set up services. [facility] [employer] [facility] claim number [id number]..... # [phone]. prize coordinator is Lauren Max [phone].
I left message at both #'s concerning setting up HH VN. If they need to approve or set up themselves
[2023-07-02] MEDS: LIPITOR 10 MG PO (17:57)
[2023-07-02] MEDS: SYNTHROID 137 MCG PO (18:04)
[2023-07-02] MEDS: DULCOLAX 10 MG PO (21:22)
[2023-07-02 23:00] VITALS: BP 136/80
[2023-07-03] MEDS: ANCEF 10 IV ×2 (02:11→09:41)
[2023-07-03 04:56] LABS: Hematocrit 38.3 % (39.0-52.0); Hemoglobin 12.8 g/dL (13.0-18.0); Mean Corp Hgb Conc. 33.4 g/dL (33.0-37.0); Mean Corpuscular Hgb 30.2 pg (27.0-31.0); Mean Corpuscular Volume 90.3 fL (80.0-94.0); Mean Platelet Volume 10.3 fL (7.4-10.4); Platelet Count 303 10^3/uL (130-400); Red Blood Cell Count 4.24 10^6/uL (4.70-6.10); Red Cell Dist. Width 14.6 % (11.5-14.5); White Blood Cell Count 9.2 10^3/uL (4.8-10.8)
[2023-07-03 05:18] LABS: Blood Urea Nitrogen 20 mg/dl (9-20); Carbon Dioxide 29 mmol/L (22-30); Chloride 99 mmol/L (98-107); Estimated Creatinine Clearance 119 ml/min; Glucose 121 mg/dl (70-99); Potassium 4.5 mmol/L (3.5-5.1); Sodium 136 mmol/L (135-145); eGFR > 60.00
[2023-07-03 07:55] VITALS: BP 140/83
--- NOTE | 2023-07-03 07:57 | W.PN.HOSP.TC ---
Today's Communication/Plan
-
dc now
Assessment / Plan
Assessment / Plan
Assessment:
Cellulitis/infected hematoma (traumatic from snowblower wound)
- s/p I&D 06/29; on 07/02, small incisional hematoma evacuated
- continue wound care per surgical service
- change IV Ancef - at discharge transition to Keflex. Cultures no growth.
- He is s/p tetanus shot
- confirmed with Dr. Gonzales, cleared for dc
CAD s/p stent
Parox A. Fib
- continue Eliquis/ASA. Plavix was stopped per his [facility] service
Constipation
- prn bowel meds
Super Morbid Obesity
- BMI 40
Essential Hypertension
- continue Atenolol and Losartan
Hyperlipidemia
- continue atorvastatin and ezetimibe
Hypothyroidism
- continue�levothyroxine
GERD
- continue Protonix
Gout
- continue allopurinol
DVT ppx: Eliquis
Code: Full
dc now
see dictated note
More than 30 minutes spent in discharge including
Final examination of the patient
Summarizing hospital stay
Instructions for continuing care to all relevant caregivers
Preparation of discharge records, prescriptions, and referral forms
Total time spent (in minutes): 45
Anticipated Discharge: Today
Subjective/Interval History
-
Date of Service: July 03, 2023
Awake, alert
Objective Data
-
Labs:
Laboratory Results
07/03/23
04:18
WBC 9.2
Hgb 12.8 L
Hct 38.3 L
Plt Count 303
Sodium 136
Potassium 4.5
Chloride 99
Carbon Dioxide 29
BUN 20
Creatinine 0.8
Glucose 121 H
Calcium 9.0
Vital Signs:
Vital Signs
Temp Pulse Resp BP Pulse Ox
97.6 F 78 16 140/83 96
07/03/23 07:55 07/03/23 07:55 07/03/23 07:55 07/03/23 07:55 07/03/23 07:55
I&O
07/02/23 07/03/23 07/04/23
06:59 06:59 06:59
Intake Total 1859 1320 / 1320
Balance 1859 1320 / 1320
Review of Systems
-
History Source: Patient and Family (discussed with at bedside)
Constitutional: Denies Fever
EENT: Reports No Symptoms Reported
Respiratory: Reports No Symptoms
Cardiac: Reports No Symptoms; Denies Chest Pain
Abdomen/GI: Reports No Symptoms
Genitourinary: Reports No Symptoms
Musculoskeletal: Reports Other (minimal wound pain)
Physical Exam
-
General: Well Developed, Well Nourished and No Apparent Distress
HEENT: Normocephalic, Atraumatic and Moist Mucous Membranes
Respiratory: Clear to Auscultation; Negative Wheezes, Rales or Rhonchi
Cardiac: Regular Rhythm and S1/S2
GI: Soft, Nontender and Nondistended
Musculoskeletal: No Clubbing, No Cyanosis, No Edema and Other (rt lower leg bandaged)
Skin: Warm and Dry
Neuro: Alert and Oriented
--- NOTE | 2023-07-03 08:10 | W.DS.TRANS ---
DC Summary - Cellulose Insulation Helper
-
Discharge Instructions:
Discharge Diagnosis/Procedures Rt leg wound
Diet Regular
Activity No strenuous activity
Additional Activity Avoid prolonged standing for 2 weeks
Driving Restrictions No driving for 1 week
Bathing Restrictions keep wound dry
Blood Work CBC, BMP in 1-2 weeks
Other Services VN
Instructions:
Stand-Alone Forms:
Changes to Home Medications: Yes
Discharge Medications:
DC Medications w/original date entered in Service Route
Losartan 1 tab PO DAILY 06/27/23
allopurinol 300 mg tablet 300 mg PO DAILY 06/27/23
apixaban 5 mg tablet (Eliquis) 5 mg PO BID 06/27/23
ascorbic acid (vitamin C) 500 mg tablet (Vitamin C) 500 mg PO DAILY 06/27/23
aspirin 81 mg tablet,delayed release 81 mg PO DAILY 06/27/23
atenolol 25 mg tablet 25 mg PO DAILY 06/27/23
atorvastatin 10 mg tablet 10 mg PO QPM 06/27/23
cholecalciferol (vitamin D3) 25 mcg (1,000 unit) tablet (Vitamin D3) 25 mcg PO DAILY 06/27/23
ezetimibe 10 mg tablet (Zetia) 10 mg PO DAILY 06/27/23
levothyroxine 137 mcg tablet (Synthroid) 137 mcg PO SUMOWEFRSA@1900 06/27/23
levothyroxine 137 mcg tablet (Synthroid) 205.5 mcg PO TUTH@1900 06/27/23
pantoprazole 40 mg tablet,delayed release (Protonix) 40 mg PO DAILY 06/27/23
cephalexin 500 mg capsule 500 mg PO QID 10 days #40 caps 07/03/23
Home Medication Changes
stop Plavix
Keflex for 10 days
Pending Results: No
[2023-07-03] MEDS: MIRALAX PO ×2 (08:51→09:09)
[2023-07-03] MEDS: VITAMIN D3 (cholecalciferol) 25 MCG PO (08:58)
[2023-07-03] MEDS: ZYLOPRIM 300 MG PO (08:58)
[2023-07-03] MEDS: ELIQUIS 5 MG PO (08:59)
[2023-07-03] MEDS: ZETIA 10 MG PO (09:00)
[2023-07-03] MEDS: TENORMIN 25 MG PO (09:00)
[2023-07-03] MEDS: LOW STRENGTH ASPIRIN 81 MG PO (09:01)
[2023-07-03] MEDS: PROTONIX 40 MG PO (09:03)
--- NOTE | 2023-07-03 10:28 | PTCARENOTE ---
pt given 1000 abx and IV site was discontinued by this nurse. pt was given discharge instructions with his spouse at the bedside for an extra ear for the information. this nurse and the patient discussed future medication times for the PO abx and
wound care that would be continued with the VN. pt agreeable to use wheelchair to exit when he is ready to leave the floor.
--- NOTE | 2023-07-03 10:36 | CM ---
Addendum entered by Stefanie Martínez 07/03/23 12:40:
Spoke with Ladi at [facility]
Case is workman's comp - unable to see until auth obtained
Requesting pts /so be instructed on wound care and supplies be sent home for pt so there will be no delay in care until supplies can be ordered and auth obtained for care
Pt and aware - agreeable to learn wound care
RN will instruct pt/ and give additional supplies for wound care
Plan - d/c to home with home care with [facility]
Fax - [phone]
Addendum entered by Stefanie Martínez 07/03/23 11:39:
Spoke with Daylin [phone] [facility]
Reports there is no preference to agency
Pt has no preference
Referred to [facility] for home care needs - awaiting acceptance
Original Note:
Pt medically ready for d/c today. Spoke with Daylin you claims adjuster supervisor at [facility] (claim number [id number]) [phone] regarding referring pt for home care. She unsure if a specific agency can be used and will contact their
Nurse Area Director Of Home Health Sales regarding preferred agency and return call
Plan - Home with - agency to be determined
--- NOTE | 2023-07-05 11:59 | CM ---
Returned call from Sarita at [facility] regarding when [facility] VN will be out to see patient. Call placed to [facility], per Ladi Evans is waiting for auth to be released. Call placed back to Sarita at [facility] to
make her aware that [facility] waiting for auth to be released. She stated that they have already auth'd it and that she and the patient's Workmans Cecilia BRITTON , Daylin, both spoke to Gia at [facility], who stated they were waiting for the auth to be
released internally. Call back to Ladi, made her aware of my discussion with Sarita. Ladi will speak to Gia to clarify. Made Ladi aware, per Sarita, VN services have been authorized, per Sarita they do not supply an auth number. Gave Ladi Stein's contact
information if there should be any further questions. Patient lives in [place], [place]
== END 2023-07-03 13:31 | disposition home health service (06) | DRG 605 ==
LOC: 2 NORTH 13:44
PROVIDERS: Emergency Medicine; Internal Medicine; Physician Assistant Medical; Surgery; ADMITTING PHYSICIAN Internal Medicine; ATTENDING PHYSICIAN Internal Medicine; CONSULT PHYSICIAN Surgery; EMERGENCY PHYSICIAN Emergency Medicine; FAMILY PHYSICIAN Family Medicine
PROC: 0J9N0ZZ Drainage of Right Lower Leg Subcutaneous Tissue and Fascia, Open Approach (ICD-10-PCS; 2023-06-29)
DX: S80.11XA Contusion of right lower leg, initial encounter (principal); L03.115 Cellulitis of right lower limb; Z68.41 Body mass index [BMI] 40.0-44.9, adult; I25.10 Atherosclerotic heart disease of native coronary artery without angina pectoris; I48.0 Paroxysmal atrial fibrillation; E78.5 Hyperlipidemia, unspecified; E03.9 Hypothyroidism, unspecified; I10 Essential (primary) hypertension; K21.9 Gastro-esophageal reflux disease without esophagitis; W31.89XA Contact with other specified machinery, initial encounter; Z79.01 Long term (current) use of anticoagulants; Z79.82 Long term (current) use of aspirin; Z87.891 Personal history of nicotine dependence; Z95.5 Presence of coronary angioplasty implant and graft; E66.9 Obesity, unspecified
CPT/HCPCS: 76882; 80048; 80053; 85025; 85027; 87040; 87070; 87075; 87205; 90471; 90715; 93005; 96372; 96374; 97161; 97165; 99284; J1670

== ENCOUNTER → 2023-07-19 12:59 | Outpatient (REF) | payer OTHER, SELFPAY | LOC: WOUND 12:59 | PROVIDERS: ATTENDING PHYSICIAN Surgery; FAMILY PHYSICIAN Family Medicine | DX: L97.812 Non-pressure chronic ulcer of other part of right lower leg with fat layer exposed (principal); L02.415 Cutaneous abscess of right lower limb; S80.11XA Contusion of right lower leg, initial encounter; T14.8XXA Other injury of unspecified body region, initial encounter; L08.9 Local infection of the skin and subcutaneous tissue, unspecified; I70.0 Atherosclerosis of aorta; X58.XXXA Exposure to other specified factors, initial encounter | CPT/HCPCS: 11042; 99204 ==

== ENCOUNTER → 2023-07-27 09:37 | Outpatient (REF) | payer OTHER, SELFPAY | LOC: WOUND 09:37 | PROVIDERS: ATTENDING PHYSICIAN Surgery; FAMILY PHYSICIAN Family Medicine | DX: L97.812 Non-pressure chronic ulcer of other part of right lower leg with fat layer exposed (principal); L02.415 Cutaneous abscess of right lower limb; S80.11XA Contusion of right lower leg, initial encounter; L08.9 Local infection of the skin and subcutaneous tissue, unspecified; I70.0 Atherosclerosis of aorta; X58.XXXA Exposure to other specified factors, initial encounter | CPT/HCPCS: 11042 ==

== ENCOUNTER → 2023-08-03 12:56 | Outpatient (REF) | payer OTHER, SELFPAY | LOC: WOUND 12:56 | PROVIDERS: ATTENDING PHYSICIAN Surgery; FAMILY PHYSICIAN Family Medicine | DX: S80.11XA Contusion of right lower leg, initial encounter (principal); L97.812 Non-pressure chronic ulcer of other part of right lower leg with fat layer exposed; L02.415 Cutaneous abscess of right lower limb; L08.9 Local infection of the skin and subcutaneous tissue, unspecified; I70.0 Atherosclerosis of aorta; X58.XXXA Exposure to other specified factors, initial encounter; Y99.0 Civilian activity done for income or pay | CPT/HCPCS: 11042 ==

== ENCOUNTER → 2023-08-17 10:18 | Outpatient (REF) | payer OTHER, SELFPAY | LOC: WOUND 10:18 | PROVIDERS: ATTENDING PHYSICIAN Surgery; FAMILY PHYSICIAN Family Medicine | DX: L97.812 Non-pressure chronic ulcer of other part of right lower leg with fat layer exposed (principal); L02.415 Cutaneous abscess of right lower limb; S80.11XA Contusion of right lower leg, initial encounter; L08.9 Local infection of the skin and subcutaneous tissue, unspecified; I70.0 Atherosclerosis of aorta; X58.XXXA Exposure to other specified factors, initial encounter | CPT/HCPCS: 11042 ==

== ENCOUNTER → 2023-08-24 09:50 | Outpatient (REF) | payer OTHER, SELFPAY | LOC: WOUND 09:50 | PROVIDERS: ATTENDING PHYSICIAN Surgery; FAMILY PHYSICIAN Family Medicine | DX: L97.812 Non-pressure chronic ulcer of other part of right lower leg with fat layer exposed (principal); L02.415 Cutaneous abscess of right lower limb; S80.11XA Contusion of right lower leg, initial encounter; T14.8XXA Other injury of unspecified body region, initial encounter; L08.9 Local infection of the skin and subcutaneous tissue, unspecified; I70.0 Atherosclerosis of aorta; X58.XXXA Exposure to other specified factors, initial encounter | CPT/HCPCS: 11042 ==

== ENCOUNTER → 2023-08-31 10:13 | Outpatient (REF) | payer OTHER, SELFPAY | LOC: WOUND 10:13 | PROVIDERS: ATTENDING PHYSICIAN Surgery; FAMILY PHYSICIAN Family Medicine | DX: L97.812 Non-pressure chronic ulcer of other part of right lower leg with fat layer exposed (principal); L02.415 Cutaneous abscess of right lower limb; S80.11XA Contusion of right lower leg, initial encounter; X58.XXXA Exposure to other specified factors, initial encounter; L08.9 Local infection of the skin and subcutaneous tissue, unspecified; I70.0 Atherosclerosis of aorta | CPT/HCPCS: 11042 ==

== ENCOUNTER → 2023-09-14 10:06 | Outpatient (REF) | payer OTHER, SELFPAY | LOC: WOUND 10:06 | PROVIDERS: ATTENDING PHYSICIAN Surgery; FAMILY PHYSICIAN Family Medicine | DX: L97.812 Non-pressure chronic ulcer of other part of right lower leg with fat layer exposed (principal); L02.415 Cutaneous abscess of right lower limb; S80.11XA Contusion of right lower leg, initial encounter; T14.8XXA Other injury of unspecified body region, initial encounter; X58.XXXA Exposure to other specified factors, initial encounter; L08.9 Local infection of the skin and subcutaneous tissue, unspecified; I70.0 Atherosclerosis of aorta | CPT/HCPCS: 11042 ==

== ENCOUNTER → 2023-09-21 09:36 | Outpatient (REF) | payer OTHER, SELFPAY | LOC: WOUND 09:36 | PROVIDERS: ATTENDING PHYSICIAN Surgery; FAMILY PHYSICIAN Family Medicine | DX: L97.812 Non-pressure chronic ulcer of other part of right lower leg with fat layer exposed (principal); L02.415 Cutaneous abscess of right lower limb; S80.11XA Contusion of right lower leg, initial encounter; T14.8XXA Other injury of unspecified body region, initial encounter; L08.9 Local infection of the skin and subcutaneous tissue, unspecified; I70.0 Atherosclerosis of aorta; X58.XXXA Exposure to other specified factors, initial encounter; Y93.89 Activity, other specified; Y99.0 Civilian activity done for income or pay | CPT/HCPCS: 11042 ==

== ENCOUNTER → 2023-09-27 12:58 | Outpatient (REF) | payer OTHER, SELFPAY | LOC: WOUND 12:58 | PROVIDERS: ATTENDING PHYSICIAN Surgery; FAMILY PHYSICIAN Family Medicine | DX: L97.812 Non-pressure chronic ulcer of other part of right lower leg with fat layer exposed (principal); L02.415 Cutaneous abscess of right lower limb; L03.115 Cellulitis of right lower limb; L08.9 Local infection of the skin and subcutaneous tissue, unspecified; I70.0 Atherosclerosis of aorta; T14.8XXA Other injury of unspecified body region, initial encounter; S80.11XA Contusion of right lower leg, initial encounter; X58.XXXA Exposure to other specified factors, initial encounter | CPT/HCPCS: 99214 ==

== ENCOUNTER → 2023-09-27 13:30 | Outpatient (REF) | payer SELFPAY | LOC: CLAB 13:30 | PROVIDERS: ATTENDING PHYSICIAN Surgery | DX: L02.415 Cutaneous abscess of right lower limb (principal); L03.115 Cellulitis of right lower limb; L97.812 Non-pressure chronic ulcer of other part of right lower leg with fat layer exposed | CPT/HCPCS: 87070; 87075; 87147; 87186; 87205 ==

== ENCOUNTER → 2023-10-05 13:15 | Outpatient (REF) | payer OTHER, SELFPAY | LOC: WOUND 13:15 | PROVIDERS: ATTENDING PHYSICIAN Surgery; FAMILY PHYSICIAN Family Medicine | DX: L97.812 Non-pressure chronic ulcer of other part of right lower leg with fat layer exposed (principal); L02.415 Cutaneous abscess of right lower limb; L03.115 Cellulitis of right lower limb; S80.11XA Contusion of right lower leg, initial encounter; T14.8XXA Other injury of unspecified body region, initial encounter; L08.9 Local infection of the skin and subcutaneous tissue, unspecified; I70.0 Atherosclerosis of aorta; X58.XXXA Exposure to other specified factors, initial encounter | CPT/HCPCS: 99212 ==

== ENCOUNTER → 2023-10-15 08:40 | Outpatient (REF) | payer OTHER, SELFPAY | LOC: WOUND 08:40 | PROVIDERS: ATTENDING PHYSICIAN Surgery; FAMILY PHYSICIAN Family Medicine | DX: L97.812 Non-pressure chronic ulcer of other part of right lower leg with fat layer exposed (principal); L02.415 Cutaneous abscess of right lower limb; L03.115 Cellulitis of right lower limb; S80.11XA Contusion of right lower leg, initial encounter; L08.9 Local infection of the skin and subcutaneous tissue, unspecified; I70.0 Atherosclerosis of aorta; X58.XXXA Exposure to other specified factors, initial encounter; Y99.0 Civilian activity done for income or pay | CPT/HCPCS: 99213 ==

== ENCOUNTER 2023-11-10 18:15 | Emergency (ER) | payer OTHER, SELFPAY ==
[2023-11-10 18:19] VITALS: BP 131/80
[2023-11-10 18:54] VITALS: BMI 41.4
--- NOTE | 2023-11-10 18:58 | ED.GENMED ---
History of Present Illness
General
Chief Complaint: Gait Dysfunction
Time Seen by Provider: 11/10/23 18:58
History of Present Illness
History of Present Illness:
HPI: The patient has been having increasing dysfunction due to pain at the distal left thigh/left knee over the last several weeks to months. It has come to the point that he can barely walk and almost collapses due to pain/weakness in the proximal
left lower extremity. He has been to several orthopedists through [facility] [place] each doctor disagrees with the other and has not had a clear diagnosis. He has tried knee injections without improvement. He is requesting MRI at this time. He
has no significant back pain. He reports no upper extremity involvement.
EXAM:
GENERAL: Well appearing in no distress
HEENT: Moist oral mucosa
CARDIOVASCULAR: No murmurs, normal heart rate, regular rhythm, No chest wall tenderness
PULMONARY: No respiratory distress, breath sounds are clear and equal
ABDOMEN: Soft with no peritoneal signs, no tenderness
NEUROLOGIC: Good distal strength all extremities, no coordination deficits
PSYCHIATRIC: Appropriate mental status, normal insight and judgement
EXTREMITIES: There is no significant tenderness to palpation of the left knee, there is no pain with internal/external rotation passively at the left knee, he does have decreased active range of motion at the left knee due to pain. He has excellent
distal strength. Negative straight leg raise on the left.
SKIN: No rash, no lesions
TIME OF INITIAL ENCOUNTER: 7 PM
NUMBER AND COMPLEXITY OF PROBLEMS ADDRESSED AT THE ENCOUNTER
� Chronic conditions affecting care: High blood pressure, hyperlipidemia, coronary stents, A-fib on Eliquis
� Acute Exacerbation and/or Progression of Chronic Illness: This is a subacute/worsening problem
� Differential Diagnosis includes: Worsening DJD, sciatica, spinal stenosis unlikely given the lack of back pain
AMOUNT AND/OR COMPLEXITY OF DATA TO BE REVIEWED AND ANALYZED
� I performed an independent evaluation of and my interpretation is:
EKG: A-fib 75, left axis deviation, frequent PVCs
CT:
X-rays: I personally viewed x-ray of the left knee which shows mild DJD and joint effusion
Laboratory Studies: Chemistries including CK normal, CBC unremarkable
Other: Ultrasound negative for DVT
� Review of other/old records: The patient was admitted 4 months ago with an infected right lower extremity hematoma after trauma
� Clinical information was obtained by an independent historian: I spoke to at bedside
� Prescriptions/Medications Considered but not given:
� Further testing considered but not performed: No clear indication for emergent MRI of the knee at this time
RISK OF COMPLICATIONS AND/OR MORBIDITY OR MORTALITY OF PATIENT MANAGEMENT
� Social determinants of health affecting care: Lives at home
� Discussion with other providers: Discussed ultrasound findings with electronic systems technician; I sent message to Dr. Austin to help expedite outpatient follow-up.
� Escalation of care including admission/observation vs risk of discharge considered: Offered/considered admitted to the hospital as patient states that he is unable to walk. However the patient is eager to try going home. He
does not want to see Naida Salinas anymore. I did send a message to Dr. Suarez see this week as outpatient. Unclear etiology of patient's symptoms.
Past History
Past History
ED Past Medical History: Other (Peripheral vascular disease)
Social History
Tobacco: Non-smoker
Alcohol: None
Drug: None
Personal:
Living: with family
Employment: Employed
Phy Exam
Physical Exam
Physical Exam:
See HPI
Course
Orders/Labs/Results
Orders:
Orders
11/10/23 18:24
Electrocardiogram (*1) Urgent
Reason for Study: Atrial Fibrillation
EKG- Treatment ONCE
11/10/23 19:14
CR Knee - Left 4 Or More View* Urgent
Comment:
Reason For Exam: pain
US Legs, Left [US Periph Venous LOWER Ext LT] Urgent
Comment:
Reason For Exam: pain
11/10/23 19:26
Comprehensive Metabolic Panel Urgent
Total CK [Creatine Phosphokinase] Urgent
11/10/23 19:52
Add On- LAB Urgent
Tests Added?: cbc w/ diff
11/10/23 21:26
CBC/With Diff [Complete Blood Count/With Diff] Urgent
Abnormal Lab Results
11/10/23 11/10/23
19:26 21:26
RBC 4.52 L 10^6/uL
(4.70-6.10)
MPV 10.6 H fL
(7.4-10.4)
Alkaline Phosphatase 187 H U/L
(38-126)
11/10/23 21:26
11/10/23 19:26
Vital Signs
Initial and Last Documented VS:
Initial Vital Signs
Temp Pulse Resp BP Pulse Ox
98.1 F 74 16 131/80 96
11/10/23 18:19 11/10/23 18:19 11/10/23 18:19 11/10/23 18:19 11/10/23 18:19
Last Documented Vital Signs
Temp Pulse Resp BP Pulse Ox
98.1 F 67 24 128/69 97
11/10/23 18:19 11/10/23 21:56 11/10/23 21:56 11/10/23 22:13 11/10/23 21:56
*Critical Care Note
Total Time (30-74mins, 75-104mins- exclusive of procedures): Not Applicable
ED Attending Note
-
Portions of this chart may have been created with voice recognition software.� Occasional wrong word or��sound alike� substitutions may have occurred due to the inherent limitations of voice recognition software.
Discharge Plan
Departure
Patient Disposition: Home (Routine Discharge)
Date of Disposition: 11/10/23
Time of Disposition: 21:59
Patient with high blood pressure during this ER visit?: Yes
Discharge Problem:
Ambulatory dysfunction, Knee pain
Prescriptions:
No Action
levothyroxine [Synthroid] 137 mcg Tablet
137 mcg PO SUMOWEFRSA@190
levothyroxine [Synthroid] 137 mcg Tablet
205.5 mcg PO TUTH@1900
atorvastatin 10 mg Tablet
10 mg PO QPM
atenolol 25 mg Tablet
25 mg PO DAILY
aspirin 81 mg Tablet,Delayed Release (Dr/Ec)
81 mg PO DAILY
pantoprazole [Protonix] 40 mg Tablet,Delayed Release (Dr/Ec)
40 mg PO DAILY
allopurinol 300 mg Tablet
300 mg PO DAILY
ezetimibe [Zetia] 10 mg Tablet
10 mg PO DAILY
Eliquis 5 mg Tablet
5 mg PO BID
Losartan
1 tab PO DAILY
ascorbic acid (vitamin C) [Vitamin C] 500 mg Tablet
500 mg PO DAILY
cholecalciferol (vitamin D3) [Vitamin D3] 25 mcg (1,000 unit) Tablet
25 mcg PO DAILY
cephalexin 500 mg capsule
500 mg PO QID 10 Days Qty: 40 0RF
Referrals:
Lakeisha Barajas DO [Family Provider] -
Ludwig Austin MD [Active] - Follow up in 2-3 days
Activity Restrictions/Additional Instructions:
The cause of your symptoms is unclear. I did send a message to Dr. Austin. I have given you his contact information. He has indicated that he will try calling you tomorrow to help arrange close outpatient follow-up. If you do not hear from them,
call their office on Sunday.
Interventions
Interventions:
*Risk Screen - Suicide Last Done: 11/10/23 18:54
*General Assessment Last Done: 11/10/23 18:54
*Neglect/Abuse Screening Last Done: 11/10/23 18:54
ED- Fall Risk Assessment Last Done: 11/10/23 18:54
*ED COVID-19 Vaccine History Last Done: 11/10/23 18:54
*Nursing Disposition Last Done: 11/10/23 22:34
ED- Neurological Assessment Last Done: 11/10/23 18:54
ED-Musculoskeletal Assessment Last Done: 11/10/23 18:54
ED Swallowing Screen Last Done: 11/10/23 18:54
Discharge Date and Time
Discharge Date/Time: 11/10/23 22:35
Print Language: BOLIVIAN
[2023-11-10 19:00] VITALS: BP 132/100
[2023-11-10 20:00] VITALS: BP 143/83
[2023-11-10 20:09] LABS: ALT (SGPT) 24 U/L (0-50); AST (SGOT) 28 U/L (17-59); Albumin 4.1 g/dl (3.5-5.0); Alkaline Phosphatase 187 U/L (38-126); Blood Urea Nitrogen 13 mg/dl (9-20); Calcium 9.8 mg/dl (8.4-10.2); Carbon Dioxide 24 mmol/L (22-30); Chloride 107 mmol/L (98-107); Estimated Creatinine Clearance 95 ml/min; Glucose 98 mg/dl (70-99); Potassium 4.4 mmol/L (3.5-5.1); Sodium 141 mmol/L (135-145); Total Bilirubin 0.6 mg/dl (0.2-1.3); Total Protein 6.9 g/dl (6.3-8.2); eGFR > 60.00
[2023-11-10 20:10] LABS: Creatine Phosphokinase 95 U/L (55-170)
[2023-11-10 21:15] VITALS: BP 141/85
[2023-11-10 21:36] LABS: % Basophils 0.7 % (0-2); % Immature Granulocytes 0.4 % (0-0.5); % Lymphocytes 30.2 % (20.5-51.1); % Monocytes 7.6 % (1.7-9.3); % Neutrophils 59.1 % (42.2-75.2); Absolute Basophils 0.1 10^3/uL (0-0.2); Absolute Eosinophils 0.2 10^3/uL (0-0.7); Absolute Lymphocytes 2.4 10^3/uL (1.2-3.4); Absolute Monocytes 0.6 10^3/uL (0.1-0.6); Absolute Neutrophils 4.8 10^3/uL (1.4-6.5); Hematocrit 40.6 % (39.0-52.0); Hemoglobin 13.8 g/dL (13.0-18.0); Mean Corpuscular Hgb 30.5 pg (27.0-31.0); Mean Corpuscular Volume 89.8 fL (80.0-94.0); Mean Platelet Volume 10.6 fL (7.4-10.4); Nucleated Red Blood Cells % 0 % (-); Platelet Count 259 10^3/uL (130-400); Red Blood Cell Count 4.52 10^6/uL (4.70-6.10); Red Cell Dist. Width 14.1 % (11.5-14.5)
[2023-11-10 22:13] VITALS: BP 128/69
== END 2023-11-10 22:35 | disposition home or self-care (01) ==
LOC: EMR 18:15
PROVIDERS: EMERGENCY PHYSICIAN Emergency Medicine; FAMILY PHYSICIAN Family Medicine
DX: R26.9 Unspecified abnormalities of gait and mobility (principal); M25.562 Pain in left knee; I48.91 Unspecified atrial fibrillation; I73.9 Peripheral vascular disease, unspecified
CPT/HCPCS: 99284; 73564; 80053; 82550; 85025; 93005; 93971

== ENCOUNTER → 2024-06-12 13:30 | Outpatient (REF) | payer OTHER, SELFPAY | LOC: EMG 13:30 | PROVIDERS: ATTENDING PHYSICIAN Family Medicine | DX: R20.0 Anesthesia of skin (principal) | CPT/HCPCS: 95886; 95911 ==

== ENCOUNTER → 2024-12-24 15:45 | Outpatient (REF) | payer OTHER, SELFPAY | LOC: MRI 3T 15:45 | PROVIDERS: ATTENDING PHYSICIAN Family Medicine | DX: R26.89 Other abnormalities of gait and mobility (principal) | CPT/HCPCS: 70551 ==